=== PATIENT | female | born 1965 | race Caucasian/White ===

== ENCOUNTER 2018-07-10 09:47 | Day surgery (SDC) | payer OTHER ==
[~2018-07-10] VITALS: Ht 152.4 cm; Wt 104.3 kg
[2018-07-10] MEDS ORDERED: BUPR100 PO (10:26)
[2018-07-10] MEDS ORDERED: RISP1 PO (10:26)
[2018-07-10] MEDS ORDERED: BACL10 PO (10:27)
[2018-07-10] MEDS ORDERED: NICO21TP TOP (10:27)
[2018-07-10] MEDS ORDERED: TOPI25 PO (10:27)
--- NOTE | 2018-07-10 10:46 | NUR ---
INTO [facility] ADMISSION STARTED AND COMPLETED. PATIENT COOPERATIVE WITH ADMISSION Ambulatory in Day Surgery History, Chart, Medications and Allergies reviewed before start of procedure.Lungs clear T/O to Auscultation. Patient confirms NPO status and agrees with scheduled surgery.
--- NOTE | 2018-07-10 11:34 | NUR ---
07/10/18 1133 Chicho Mueller PATIENT DETERMINED TO BE ASA APPROPRIATE FOR PROPOFOL SEDATION PRIOR TO START OF PROCEDURE BY 3-LEAD EKG REVIEWED WITH PHYSICIAN PRIOR TO START OF PROCEDURE.Patient to ENDO 1History, Chart, Medications and Allergies reviewed before start of procedure.MONITOR INTACT WITH CONTINUOUS PULSE OXIMETRY AND INTERMITTENT BP.O2 VIA N/C INTACT THROUGHOUT SEDATION/PROCEDURE.
--- NOTE | 2018-07-10 13:39 | NUR ---
"DAY SURGERY RN | DISHARGE This RN was not able to chart earlier d/t computer issues. Patient's vital signs were stable. No issues. Discharge instructions given. Patient taken in wheelchair to front entrance."
== END 2018-07-10 23:25 | disposition home or self-care (01) ==
LOC: ORSCMMR 09:47 → ORD 07-24 11:00
PROVIDERS: Internal Medicine Gastroenterology
PROC: 0DBN8ZX Excision of Sigmoid Colon, Via Natural or Artificial Opening Endoscopic, Diagnostic (ICD-10-PCS; principal; 2018-07-10 11:00)
DX: Z12.11 Encounter for screening for malignant neoplasm of colon (principal); D12.5 Benign neoplasm of sigmoid colon; K57.30 Diverticulosis of large intestine without perforation or abscess without bleeding; K64.4 Residual hemorrhoidal skin tags; I10 Essential (primary) hypertension; J45.909 Unspecified asthma, uncomplicated; F31.9 Bipolar disorder, unspecified; Z79.899 Other long term (current) drug therapy; F17.210 Nicotine dependence, cigarettes, uncomplicated
CPT/HCPCS: 88305; J2250; J3010; J7120

== ENCOUNTER → 2018-12-11 | Outpatient (CLI) | payer OTHER ==
[~2018-12-11] MED LIST: BACL10 PO; BUPR100 PO; NICO21TP TOP; RISP1 PO; TOPI25 PO
== END ==
LOC: LAB EV 10:08 → LAB SHORT 10:08
DX: L02.31 Cutaneous abscess of buttock (principal)
CPT/HCPCS: 87070; 87075; 87205

== ENCOUNTER → 2019-05-08 | Outpatient (CLI) | payer OTHER | END | disposition home or self-care (01) | LOC: LAB SHORT 08:53 → LAB EV 08:53 | DX: L03.032 Cellulitis of left toe (principal) | CPT/HCPCS: 87070; 87075; 87205 ==

== ENCOUNTER 2020-09-07 11:23 | Emergency (ER) | payer OTHER ==
[~2020-09-07] VITALS: Ht 152.4 cm; Wt 108.9 kg
[2020-09-09] MEDS ORDERED: AMLO5 PO (09:47)
[2020-09-09] MEDS ORDERED: LORA10ER PO (09:47)
[2020-09-09] MEDS ORDERED: Chantix1 MG PO (09:47)
[2020-09-09] MEDS ORDERED: ATOR40TA PO (09:48)
[2020-09-09] MEDS ORDERED: HYDCHL25 PO (09:48)
[2020-09-09] MEDS ORDERED: Diclofenac Pota50 MG PO (09:49)
[2020-09-09] MEDS ORDERED: LOSA25 PO (09:49)
[2020-09-09] MEDS ORDERED: ACET325 PO (09:49)
[2020-09-09] MEDS ORDERED: HYDR1TAB94 PO (09:50)
[2020-09-09] MEDS ORDERED: ALBU90OI INH (09:50)
== END 2020-09-07 14:00 | disposition home or self-care (01) ==
LOC: ER 11:23
DX: M62.838 Other muscle spasm (principal); S80.02XA Contusion of left knee, initial encounter; M25.512 Pain in left shoulder; I10 Essential (primary) hypertension; R60.0 Localized edema; Z88.8 Allergy status to other drugs, medicaments and biological substances; Z79.899 Other long term (current) drug therapy; Z87.891 Personal history of nicotine dependence; W18.30XA Fall on same level, unspecified, initial encounter
CPT/HCPCS: 72040; 73590; 96372; 99283-25; J1885

== ENCOUNTER → 2021-02-03 | Outpatient (CLI) | payer OTHER ==
[~2021-02-03] MED LIST changes: +ACET325 PO; +ALBU90OI INH; +AMLO5 PO; +ATOR40TA PO; +Chantix1 MG PO; +Diclofenac Pota50 MG PO; +HYDCHL25 PO; +HYDR1TAB94 PO; +LORA10ER PO; +LOSA25 PO
[2021-02-03 15:05] LABS: Anion Gap 7 mmol/L (6-16); BASOPHILS ABSOLUTE AUTO 0.06 K/mm3 (0.00-0.23); BASOPHILS PERCENT AUTO 1 % (0-2); Blood Urea Nitrogen 20 mg/dL (8-24); Bun/Creatinine Ratio 28.4 (12.0-20.0); CO2, Blood 25 mmol/L (21-32); Calcium, Blood 9.5 mg/dL (8.5-10.1); Chloride, Blood 109 mmol/L (98-108); Creatinine, Blood 0.71 mg/dL (0.40-1.00); EOSINOPHILS PERCENT AUTO 3 % (0-6); Glomerular Filtration Rate >60 (60-); Glucose, Blood 101 mg/dL (70-99); Hematocrit 37.7 % (33.0-51.0); Hemoglobin 12.3 g/dL (11.5-16.0); IMMATURE GRAN ABSOLUTE AUTO 0.03 K/mm3 (0.00-0.10); IMMATURE GRAN PERCENT AUTO 0 % (0-1); LYMPHOCYTES ABSOLUTE AUTO 2.49 K/mm3 (0.84-5.20); LYMPHOCYTES PERCENT AUTO 31 % (21-46); MONOCYTES PERCENT AUTO 8 % (4-13); Mean Corpuscular HGB 28.7 pg (26.0-34.0); Mean Corpuscular HGB Conc 32.6 g/dL (31.5-36.5); Mean Corpuscular Volume 88 fL (80-100); Mean Platelet Volume 10.6 fL (9.1-12.4); NEUTROPHILS ABSOLUTE AUTO 4.58 K/mm3 (1.96-9.15); NEUTROPHILS PERCENT AUTO 58 % (41-73); Platelet Count 331 K/mm3 (150-400); RDW Coefficient Variation 14.1 % (11.7-14.2); RDW Standard Deviation 45.4 fL (35.1-46.3); Red Blood Cell Count 4.28 M/mm3 (3.80-5.20); Sodium, Blood 141 mmol/L (136-145); White Blood Cell Count 7.96 K/mm3 (4.00-11.30)
== END | disposition home or self-care (01) ==
LOC: LAB 12:48 → LAB SHORT 12:48
PROVIDERS: Physician Assistant
DX: E87.1 Hypo-osmolality and hyponatremia (principal); I10 Essential (primary) hypertension
CPT/HCPCS: 80048; 85025

== ENCOUNTER → 2022-07-15 | Outpatient (CLI) | payer OTHER ==
[2022-07-15 20:30] LABS: Alanine Aminotransfer (ALT/SGP 32 U/L (12-78); Albumin, Blood 3.7 g/dL (3.4-5.0); Albumin/Globulin Ratio 0.9 (0.8-1.8); Alk Phos 136 U/L (50-136); Anion Gap 3 mmol/L (6-16); Aspartate Aminotrans (AST/SGOT 18 U/L (12-37); Bilirubin, Total 0.4 mg/dL (0.1-1.0); Blood Urea Nitrogen 17 mg/dL (8-24); Bun/Creatinine Ratio 21.4 (12.0-20.0); CHOL/HDL RATIO 2.1; CO2, Blood 30 mmol/L (21-32); Calcium, Blood 9.4 mg/dL (8.5-10.1); Chloride, Blood 102 mmol/L (98-108); Cholesterol 147 mg/dL (50-200); Globulin, Blood 4.1 g/dL (2.2-4.0); Glomerular Filtration Rate 85 (60-); Glucose, Blood 90 mg/dL (70-99); HDL Cholesterol 69 mg/dL (>39); LDL/HDL RATIO 0.9; Low Density Lipoprotein Chol 62 mg/dL (0-110); Potassium, Blood 3.4 mmol/L (3.5-5.5); Sodium, Blood 135 mmol/L (136-145); Total Protein, Blood 7.8 g/dL (6.4-8.2); Triglycerides 82 mg/dL (30-160); Very Low Density Lipoprot Chol 16 mg/dL (6-32)
== END | disposition home or self-care (01) ==
LOC: LAB SHORT 17:56 → LAB 17:56
PROVIDERS: Student in an Organized Health Care Education/Training Program
DX: Z51.81 Encounter for therapeutic drug level monitoring (principal); Z79.899 Other long term (current) drug therapy
CPT/HCPCS: 80053; 80061